=== PATIENT | female | born 1925 | race Caucasian/White ===

== ENCOUNTER 2017-03-09 17:21 | Emergency (ER) | payer MEDICARE, BC ==
[2017-03-09] MEDS ORDERED: Sodium Chloride 0.9% 10 ML Syringe FLUSH PRN (17:40)
[2017-03-09 18:29] LABS: CHLORIDE,CL 97 mmol/L (98-107); SODIUM,NA 133 mmol/L (136-145)
[2017-03-09] MEDS ORDERED: Labetalol 20 MG/4 ML Syringe IVPUSH ONE (20:13)
[2017-03-09 20:48] VITALS: BP 151/65
--- NOTE | 2017-03-10 08:50 | ER ---
Date of Service: 03/09/2017 SUBJECTIVE: Tashia presents to the emergency room with complaints of dysarthria and expressive aphasia. The patient's friend states that she talked to her on the phone at approximately 4:00 p.m. this afternoon and noticed that she was having difficulties with slurred speech as well as expressive aphasia. She states that she would have episodes where she would not be able to speak for several seconds. The patient states that she has felt well today and has not noticed any other symptoms. She lives alone, so it is unknown specifically what time these symptoms started. The patient does have a history of previous cerebrovascular disease while undergoing angioplasty in 2008. 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 Again, the patient states that she has no recent history of headache, difficulties with speech or ambulation, or paresthesia today or in the recent past. PAST MEDICAL HISTORY: 1. Coronary artery disease. 2. Cerebrovascular disease. 3. Abdominal aortic aneurysm. 4. Stage 3 chronic kidney disease. Please see above. 5. Essential hypertension. 6. Osteoarthritis. 7. Cataracts. 8. Valvular heart disease. 9. Uterine cancer. 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 11.Iron deficiency anemia. 12.Hyperlipidemia. 13.Major depressive disorder. MEDICATIONS: 1. Tramadol. 2. Pravastatin. 3. Calcitriol. 4. Plavix. 5. Protonix. 6. Lopressor. 7. Prolia. 8. Acetaminophen. 9. Aspirin. 10.Multivitamin. 11.Morton-3. 12.Simethicone. 13.Vitamin D3. ALLERGIES: Sulfa. REVIEW OF SYSTEMS: General: Denies any fever or chills or recent illness. HEENT: No sore throat, rhinorrhea, or congestion. Denies any facial paresthesia or recent history of facial droop. Respiratory: Denies any shortness of breath. Cardiac: Denies any substernal chest pain. No jaw, arm, neck, or back pain. GI: No nausea, vomiting, or diarrhea. No melena, hematochezia, or hematemesis. : Denies any dysuria. Musculoskeletal: No myalgias or arthralgias. Neurologic: Please see history of present illness. Again, denies any other acute neurologic pathological findings. PHYSICAL EXAMINATION: General: This is an 89-year-old female patient, who is in no acute distress. Vital Signs: Blood pressure is 184/88, heart rate is 66, temperature is 35.5, respiratory rate is 20, O2 saturations 100%. Skin: Warm, pale, and dry. HEENT: Eyes, PERRLA. Extraocular movements are intact. Mouth, oral mucosa is moist. No facial droop noted. Her smile and eyebrow raise is symmetrical. Neck: Supple without masses. There is no lymphadenopathy. Lungs: Clear to auscultation. Heart: Regular rate and rhythm. Abdomen: Soft, nontender. There is no hepatosplenomegaly or masses noted. Extremities: Without edema. She has approximately 4/5 strength in both her upper and lower extremities. Neurologic: Cranial nerves II through XII are intact. The patient's speech is fluent. Her gait is within normal limits. She has no pronator drift. Her Romberg is negative. NIH stroke scale was performed continuously during her stay in the emergency room and she continued to experience no abnormal neurological findings. Her speech remained clear during her stay in the emergency room. RADIOGRAPHIC DATA: CT scan of the patient's brain was obtained. It did not reveal any acute pathology. LABORATORY DATA: WBCs 8.8, hemoglobin is 10.7, platelets are 131. Coags; PT is 9.2, INR is 0.9. Chemistry; sodium is 133, potassium is 4.7, chloride is 97, bicarb is 27, BUN is 28, creatinine is 1.3. Creatinine clearance is 24.27, GFR is 39, glucose is 103, calcium is 9.0, corrected calcium is 9.4, total bilirubin is 0.3, AST is 17, ALT is 18. Alkaline phosphatase is 64, troponin is less than 0.017. Her C-reactive protein is 0.4, total protein is 7.1, albumin is 3.5. CT scan of the patient's brain without contrast was obtained. It did not reveal any acute pathology. A 12-lead EKG was obtained showing a sinus rhythm without any acute ST or T-wave abnormalities. EMERGENCY ROOM COURSE: IV access was established. She was given labetalol 20 mg IV. Her blood pressure at that time was 198/85, was rechecked and was found to be 142/66. The patient remained stable in my care in the emergency room. ASSESSMENT: Transient ischemic attack. PLAN: I did speak with Dr. Del Real and subsequently Dr. Pedersen who are the neurologist and hospitalist, respectively at [facility] in [place]. Dr. Del Real advised sending the patient for a CT angiogram of the brain as well as carotid ultrasound as well as a neurology consult for this patient. Again, I did subsequently speak with Dr. Pedersen from Internal Medicine who will admit the patient. The patient will be transported by [facility]. All questions were answered. MWK: 03/09/2017 20:43:54 MODL: 03/09/2017 21:12:20 /[id number]
== END 2017-03-09 21:20 | disposition short-term general hospital (02) ==
LOC: VM.ED 17:21
DX: G45.9 Transient cerebral ischemic attack, unspecified (principal); I25.10 Atherosclerotic heart disease of native coronary artery without angina pectoris; M19.90 Unspecified osteoarthritis, unspecified site; E78.5 Hyperlipidemia, unspecified; F32.9 Major depressive disorder, single episode, unspecified; I12.9 Hypertensive chronic kidney disease with stage 1 through stage 4 chronic kidney disease, or unspecified chronic kidney disease; N18.3 Chronic kidney disease, stage 3 (moderate); Z88.2 Allergy status to sulfonamides; Z86.79 Personal history of other diseases of the circulatory system
CPT/HCPCS: 36415; 70450; 80053; 84484; 85025; 85610; 86140; 93005; 96374; 99285; J7050; 99284-GF; A9270-GY